=== PATIENT | female | born 1995 | race Hispanic/Latino ===

== ENCOUNTER 2018-09-09 14:41 | Emergency (ER) | payer OTHER, SELFPAY ==
--- OUTSIDE RECORDS SUMMARY | 2018-09-09 14:45 | XMS REPORT | Clinical Summary ---
:1995 Author Organization [facility] Address [address] [place] [address] Care Team Providers Name Role Phone Asked, No Pcp Primary Care Provider Unavailable Allergies No Known Allergies Medications Medication Sig Dispensed Refills Start Date End Date Status ascorbic acid, vitamin Take 500 mg by 0 Active C, (VITAMIN C) 500 MG mouth 3 (three) tablet times a day. acetaminophen-codeine Take 1 tablet by 0 Active (TYLENOL WITH CODEINE mouth every 6 #3) 300-30 mg per (six) hours as tablet needed for moderate pain. ferrous sulfate 325 Take 325 mg by 0 Active (65 FE) MG tablet mouth daily with breakfast. amoxicillin (AMOXIL) Take 500 mg by 0 09/11/2017 Active 500 MG capsule mouth 3 (three) times a day. VIT 10/IRON Take 1 tablet by 0 Active FUM/FOLIC (VITAFOL-OB mouth daily. ORAL) Active Problems Not on file Encounters Date Type Specialty Care Team Description 09/16/2017 Hospital Encounter Obstetrics and Keshawn Oreilly MD 38 weeks gestation of Gynecology (Primary Dx) after 09/08/2017 Social History Tobacco Use Types Packs/Day Years Used Date Never Smoker Smokeless Tobacco: Never Used Alcohol Use Drinks/Week oz/Week Comments No Sex Assigned at Date Recorded Not on file Job Start Date Occupation Industry Not on file Not on file Not on file Travel History Travel Start Travel End No recent travel history available. Last Filed Vital Signs Vital Sign Reading Time Taken Blood Pressure 114/65 09/16/2017 2:50 PM PHOTOGRAPHY ASSISTANT Pulse 71 09/16/2017 2:50 PM PHOTOGRAPHY ASSISTANT Temperature 36.3 C (97.4 F) 09/16/2017 1:31 PM PHOTOGRAPHY ASSISTANT Respiratory Rate 18 09/16/2017 1:31 PM PHOTOGRAPHY ASSISTANT Oxygen Saturation - - Inhaled Oxygen Concentration - - Weight 86.6 kg (191 lb) 09/16/2017 1:31 PM PHOTOGRAPHY ASSISTANT Height 152.4 cm (5') 09/16/2017 1:31 PM PHOTOGRAPHY ASSISTANT Body Mass Index 37.3 09/16/2017 1:31 PM PHOTOGRAPHY ASSISTANT Plan of Treatment Not on file Procedures Procedure Name Priority Date/Time Associated Comments Diagnosis ZZESTIMATED GFR Routine 09/16/2017 2:40 Results for this PM PHOTOGRAPHY ASSISTANT procedure are in the results section. URIC ACID LEVEL Routine 09/16/2017 2:40 Results for this PM PHOTOGRAPHY ASSISTANT procedure are in the results section. FIBRINOGEN Routine 09/16/2017 2:40 Results for this PM PHOTOGRAPHY ASSISTANT procedure are in the results section. PARTIAL THROMBOPLASTIN Routine 09/16/2017 2:40 Results for this TIME (PTT) PM PHOTOGRAPHY ASSISTANT procedure are in the results section. PROTHROMBIN TIME WITH Routine 09/16/2017 2:40 Results for this INR PM PHOTOGRAPHY ASSISTANT procedure are in the results section. COMPREHENSIVE METABOLIC Routine 09/16/2017 2:40 Results for this PANEL PM PHOTOGRAPHY ASSISTANT procedure are in the results section. HC COMPLETE BLD COUNT Routine 09/16/2017 2:40 Results for this W/AUTO DIFF PM PHOTOGRAPHY ASSISTANT procedure are in the results section. URINE DRUGS OF ABUSE STAT 09/16/2017 1:30 Results for this SCREEN PM PHOTOGRAPHY ASSISTANT procedure are in the results section. URINALYSIS SCREEN AND STAT 09/16/2017 1:30 Results for this MICROSCOPY, WITH REFLEX PM PHOTOGRAPHY ASSISTANT procedure are in TO CULTURE the results section. GRAM STAIN STAT 09/16/2017 1:30 Results for this PM PHOTOGRAPHY ASSISTANT procedure are in the results section. URINE CULTURE STAT 09/16/2017 1:30 Results for this PM PHOTOGRAPHY ASSISTANT procedure are in the results section. after 09/08/2017 Results Estimated GFR (09/16/2017 2:40 PM PHOTOGRAPHY ASSISTANT) GFR Non Af Amer >90 mL/min/1.73 m2 [facility] DEPARTMENT OF PATHOLOGY AND GENOMIC MEDICINE GFR Af Amer >90 mL/min/1.73 m2 [facility] DEPARTMENT OF Comment: PATHOLOGY AND GENOMIC Chronic kidney disease: <60 mL/min/1.73m2 MEDICINE Kidney failure: <15 mL/min/1.73m2 The estimated GFR is calculated from the IDMS-traceable Modification of Diet in Renal Disease Equation. The accuracy of the calculation is poor when the creatinine is normal. Calculated values >90 mL/min/1.73m2 are not reported. This equation has not been validated in children (<18 years), women, the elderly (>70 years), or ethnic groups other than Caucasians and Americans. Specimen Plasma specimen Performing Organization Address [facility] Phone Number [facility] OF PATHOLOGY AND [id number] Adrianoseikylee. [address] Partial thromboplastin time, activated (09/16/2017 2:40 PM PHOTOGRAPHY ASSISTANT) PTT 28.6 23.0 - 36.0 sec [facility] DEPARTMENT OF PATHOLOGY Comment: AND GENOMIC MEDICINE PTT therapeutic range for unfractionated heparin is 61.0-112.0 seconds which corresponds to Anti-Xa 0.3-0.7 U/ml. Specimen Blood Performing Organization Address [facility] Phone Number [facility] OF PATHOLOGY AND [id number] [address] Prothrombin time with INR (09/16/2017 2:40 PM PHOTOGRAPHY ASSISTANT) Prothrombin time 13.6 12.0 - 15.0 sec [facility] DEPARTMENT OF PATHOLOGY AND GENOMIC MEDICINE INR 1.0 [facility] DEPARTMENT OF Comment: PATHOLOGY AND GENOMIC The International Normalized Ratio (INR) is a therapeutic MEDICINE monitoring tool for patients who are stable on oral anticoagulant therapy. An INR of 2.0-3.0 is suggested for deep vein thrombosis/pulmonary embolism. Specimen Blood Performing Organization Address [facility] Phone Number [facility] DEPARTMENT OF PATHOLOGY AND [id number] Adrianoseikylee. [address] Fibrinogen (09/16/2017 2:40 PM PHOTOGRAPHY ASSISTANT) Fibrinogen 510 (H) 200 - 450 mg/dL [facility] DEPARTMENT OF PATHOLOGY AND GENOMIC [facility] Specimen Blood Performing Organization Address [facility] Phone Number [facility] DEPARTMENT OF PATHOLOGY AND [id number] Adrianoseikylee. [address] CBC with platelet and differential (09/16/2017 2:40 PM PHOTOGRAPHY ASSISTANT) WBC 6.39 4.50 - 11.00 k/uL [facility] DEPARTMENT OF PATHOLOGY AND GENOMIC MEDICINE RBC 3.78 (L) 4.20 - 5.50 m/uL [facility] DEPARTMENT OF PATHOLOGY AND GENOMIC MEDICINE HGB 9.2 (L) 12.0 - 16.0 g/dL [facility] DEPARTMENT OF PATHOLOGY AND GENOMIC MEDICINE HCT 28.2 (L) 37.0 - 47.0 % [facility] DEPARTMENT OF PATHOLOGY AND GENOMIC MEDICINE MCV 74.6 (L) 82.0 - 100.0 fL [facility] DEPARTMENT OF PATHOLOGY AND GENOMIC MEDICINE MCH 24.3 (L) 27.0 - 34.0 pg [facility] DEPARTMENT OF PATHOLOGY AND GENOMIC MEDICINE MCHC 32.6 31.0 - 37.0 g/dL [facility] OF PATHOLOGY AND GENOMIC MEDICINE RDW - SD 46.1 37.0 - 55.0 fL [facility] OF PATHOLOGY AND GENOMIC MEDICINE MPV 11.2 8.8 - 13.2 fL [facility] DEPARTMENT OF PATHOLOGY AND GENOMIC MEDICINE Platelet count 179 150 - 400 k/uL [facility] DEPARTMENT OF PATHOLOGY AND GENOMIC MEDICINE Neutrophils 61.0 39.0 - 69.0 % [facility] DEPARTMENT OF PATHOLOGY AND GENOMIC MEDICINE Lymphocytes 33.2 25.0 - 45.0 % [facility] DEPARTMENT OF PATHOLOGY AND GENOMIC MEDICINE Monocytes 5.0 0.0 - 10.0 % [facility] DEPARTMENT OF PATHOLOGY AND GENOMIC MEDICINE Eosinophils 0.3 0.0 - 5.0 % [facility] DEPARTMENT OF PATHOLOGY AND GENOMIC MEDICINE Basophils 0.2 0.0 - 1.0 % [facility] DEPARTMENT OF PATHOLOGY AND GENOMIC MEDICINE Immature granulocytes 0.3 0.0 - 1.0 % [facility] DEPARTMENT OF PATHOLOGY AND GENOMIC MEDICINE Specimen Blood Performing Organization Address City/[facility] Phone Number [facility] DEPARTMENT OF PATHOLOGY AND [id number] [address] Uric acid level (09/16/2017 2:40 PM PHOTOGRAPHY ASSISTANT) Uric acid 4.8 3.5 - 8.5 mg/dL [facility] OF PATHOLOGY AND GENOMIC MEDICINE Specimen Plasma specimen Performing Organization Address City/[facility] Phone Number [facility] OF PATHOLOGY AND [id number] [employer]. [address] Comprehensive metabolic panel (09/16/2017 2:40 PM PHOTOGRAPHY ASSISTANT) Sodium 137 135 - 148 mEq/L [facility] DEPARTMENT OF PATHOLOGY AND GENOMIC MEDICINE Potassium 3.5 3.5 - 5.0 mEq/L [facility] DEPARTMENT OF PATHOLOGY AND GENOMIC MEDICINE Chloride 101 99 - 109 mEq/L [facility] OF PATHOLOGY AND GENOMIC MEDICINE CO2 22 (L) 24 - 31 mEq/L [facility] DEPARTMENT OF PATHOLOGY AND GENOMIC MEDICINE Anion gap 14 7 - 15 mEq/L [facility] DEPARTMENT OF Comment: PATHOLOGY AND GENOMIC Starting from October , anion gap calculation MEDICINE no longer incorporates potassium. Please note the change. BUN <5 (L) 8 - 24 mg/dL [facility] DEPARTMENT OF PATHOLOGY AND GENOMIC MEDICINE Creatinine 0.5 0.5 - 1.5 mg/dL [facility] OF PATHOLOGY AND GENOMIC MEDICINE Glucose 101 (H) 65 - 99 mg/dL [facility] DEPARTMENT OF PATHOLOGY AND GENOMIC MEDICINE Calcium 8.8 8.6 - 10.6 mg/dL [facility] DEPARTMENT OF PATHOLOGY AND GENOMIC MEDICINE Protein 6.7 6.3 - 8.2 g/dL [facility] OF PATHOLOGY AND GENOMIC MEDICINE Albumin 2.8 (L) 3.5 - 5.0 g/dL [facility] OF PATHOLOGY AND GENOMIC MEDICINE A/G ratio 0.7 0.7 - 3.8 [facility] OF PATHOLOGY AND GENOMIC MEDICINE Alkaline phosphatase 93 30 - 115 U/L [facility] OF PATHOLOGY AND GENOMIC MEDICINE AST 16 15 - 46 U/L [facility] PATHOLOGY AND GENOMIC MEDICINE ALT 9 (L) 10 - 55 U/L [facility] OF PATHOLOGY AND GENOMIC MEDICINE Total bilirubin <0.3 0.2 - 1.2 mg/dL [facility] OF PATHOLOGY AND GENOMIC MEDICINE Specimen Plasma specimen Performing Organization Address City/State/Zipcode Phone Number [facility] OF PATHOLOGY AND [address] [place] [address] [facility] Urinalysis screen and microscopy, with reflex to culture (09/16/2017 1:30 PM PHOTOGRAPHY ASSISTANT) Specimen site Clean catch [facility] DEPARTMENT OF PATHOLOGY AND GENOMIC MEDICINE Color, UA Straw [facility] DEPARTMENT OF PATHOLOGY AND GENOMIC MEDICINE Appearance, UA Hazy [facility] DEPARTMENT OF PATHOLOGY AND GENOMIC MEDICINE Specific gravity, UA 1.005 1.001 - 1.035 [facility] DEPARTMENT OF PATHOLOGY AND GENOMIC MEDICINE pH, UA 7.0 5.0 - 8.5 [facility] DEPARTMENT OF PATHOLOGY AND GENOMIC MEDICINE Protein, UA Negative Negative [facility] DEPARTMENT OF PATHOLOGY AND GENOMIC MEDICINE Glucose, UA Negative Negative [facility] DEPARTMENT OF PATHOLOGY AND GENOMIC MEDICINE Ketones, UA Negative Negative [facility] DEPARTMENT OF PATHOLOGY AND GENOMIC MEDICINE Bilirubin, UA Negative Negative [facility] DEPARTMENT OF PATHOLOGY AND GENOMIC MEDICINE Blood, UA Negative Negative [facility] DEPARTMENT OF PATHOLOGY AND GENOMIC MEDICINE Nitrite, UA Negative Negative [facility] DEPARTMENT OF PATHOLOGY AND GENOMIC MEDICINE Urobilinogen, UA <2.0 <2.0 [facility] DEPARTMENT OF PATHOLOGY AND GENOMIC MEDICINE Leukocyte esterase, UA Small (A) Negative [facility] DEPARTMENT OF PATHOLOGY AND GENOMIC MEDICINE Epithelial cells, UA 8 /HPF [facility] DEPARTMENT OF PATHOLOGY AND GENOMIC MEDICINE WBC, UA 3 0 - 4 /HPF [facility] DEPARTMENT OF PATHOLOGY AND GENOMIC MEDICINE RBC, UA 1 0 - 2 /HPF [facility] DEPARTMENT OF PATHOLOGY AND GENOMIC MEDICINE Bacteria, UA Moderate (A) None seen [facility] DEPARTMENT OF PATHOLOGY AND GENOMIC MEDICINE Yeast, UA None seen [facility] DEPARTMENT OF PATHOLOGY AND GENOMIC MEDICINE Yeast with pseudohyphae, UA None seen [facility] DEPARTMENT OF PATHOLOGY AND GENOMIC MEDICINE Specimen Urine Performing Organization Address City/[facility]/Zipcode Phone Number [facility] DEPARTMENT OF PATHOLOGY AND [address] [place] [address] [facility] Urine drugs of abuse screen (09/16/2017 1:30 PM PHOTOGRAPHY ASSISTANT) Amphetamine screen, urine Negative [facility] DEPARTMENT OF PATHOLOGY AND GENOMIC MEDICINE Methamphetamine screen, SEE COMMENT [facility] DEPARTMENT OF urine Comment: PATHOLOGY AND GENOMIC Test Not Performed. MEDICINE Methamphetamine and Methadone are not available from hydraulic jack mechanic. If needed contact the lab for referral testing. Barbiturate screen, urine Negative [facility] DEPARTMENT OF PATHOLOGY AND GENOMIC MEDICINE Benzodiazepine screen, Negative [facility] DEPARTMENT OF urine PATHOLOGY AND GENOMIC MEDICINE Cocaine screen, urine Negative [facility] DEPARTMENT OF PATHOLOGY AND GENOMIC MEDICINE Methadone screen, urine SEE COMMENT [facility] DEPARTMENT OF Comment: PATHOLOGY AND GENOMIC Test Not Performed. MEDICINE Methamphetamine and Methadone are not available from hydraulic jack mechanic. If needed contact the lab for referral testing. Opiates screen, urine Positive (A) [facility] DEPARTMENT OF PATHOLOGY AND GENOMIC MEDICINE Phencyclidine screen, urine Negative [facility] DEPARTMENT OF PATHOLOGY AND GENOMIC MEDICINE Cannabinoid screen, urine Negative [facility] DEPARTMENT OF PATHOLOGY AND GENOMIC MEDICINE Tricyclic screen, urine Negative [facility] DEPARTMENT OF Comment: PATHOLOGY AND GENOMIC Drug screen minimum concentration of detectability MEDICINE Ekuvucdzphzm4570 ng/mL Nfljcpicxkxzfdrx1492 ng/mL Barbiturates 300 ng/mL Jfjtrtclkognpil534 ng/mL Gjkwycp177 ng/mL Kzcelnmrj921 ng/mL Uhbwymz487 ng/mL Phencyclidine 25 ng/mL Ysjjwmkchppt02 ng/mL Xkffoqqeft2922 ng/mL Negative test results indicates presumptive evidence of lack of clinically significant drug concentration in this urine specimen. Positive test results are presumptive evidence of clinically significant drug concentration in this urine specimen. Testing performed for medical purposes only. Specimen Urine Performing Organization Address [facility]/Zipcode Phone Number [facility] DEPARTMENT OF PATHOLOGY AND [address] [place] [address] GENOMIC MEDICINE Gram stain (09/16/2017 1:30 PM PHOTOGRAPHY ASSISTANT) Gram stain result No WBC's [facility] DEPARTMENT OF PATHOLOGY Moderate Gram positive rods AND GENOMIC MEDICINE Comment: Specimen Information Specimen Source: Urine Specimen Site: Clean catch Specimen Urine Performing Organization Address City/[facility]/Zipcode Phone Number [facility] DEPARTMENT OF PATHOLOGY AND [address] [place] [address] [employer] MEDICINE Urine culture (09/16/2017 1:30 PM PHOTOGRAPHY ASSISTANT) Urine culture isolate Mixed Gram positive charlette [facility] DEPARTMENT OF 10-3 cfu/ml PATHOLOGY AND GENOMIC (A) MEDICINE Comment: Specimen Information Specimen Source: Urine Specimen Site: Clean catch Specimen Urine Performing Organization Address City/State/Zipcode Phone Number [facility] DEPARTMENT OF PATHOLOGY AND [address] [place] [address] GENOMIC MEDICINE after 09/08/2017 Insurance Payer Benefit Plan / Group Subscriber ID Type Phone Address [facility] x[facility] HMO Advance Directives Patient has advance care planning documents, and code status on file. For more information, please contact:Greg Nichols[address] [place] [address] Code Status Date Activated Date Inactivated Comments Full Code 09/16/2017 1:34 PM 09/16/2017 7:42 PM Code Status decision reached by: Patient
--- OUTSIDE RECORDS SUMMARY | 2018-09-09 14:46 | XMS REPORT ---
:1995 [facility] Address [address] [place] [address] [address] [place] [address] Care Team Providers Name Role Phone Unavailable Unavailable Unavailable Problems This patient has no known problems. Allergies, Adverse Reactions, Alerts This patient has no known allergies or adverse reactions. Medications This patient has no known medications.
[2018-09-09] MEDS ORDERED: ALBUTEROL 2.5 MG/3 ML NEB SOL ONE (15:53)
--- NOTE | 2018-09-09 16:58 | ER ---
Nurse's Notes [facility] Name: Sandy Murray Age: 23 yrs Sex: Female : 1995 Arrival Date: 09/09/2018 Time: 14:47 Bed DIS3 Private MD: None, None Diagnosis: Bronchitis, not specified as acute or chronic Presentation: 09/09 14:55 Presenting complaint: Patient states: cough that began 2-3 days ago. Pt also reports aa5 sore throat. Transition of care: patient was not received from another setting of care. Onset of symptoms was August 2018. Risk Assessment: Do you want to hurt yourself or someone else? Patient reports no desire to harm self or others. Initial Sepsis Screen: Does the patient meet any 2 criteria? No. Patient's initial sepsis screen is negative. Does the patient have a suspected source of infection? No. Patient's initial sepsis screen is negative. Care prior to arrival: None. 14:55 Method Of Arrival: Ambulatory aa5 14:55 Acuity: JANES 4 aa5 PEDIATRIC UROLOGIST: 14:56 LMP N/A - control method aa5 Historical: - Allergies: 14:56 No Known Allergies; aa5 - Home Meds: 14:56 Iron CR Oral [Active]; aa5 - PMHx: 14:56 Anemia; aa5 - PSHx: 14:56 ; Appendectomy; aa5 - Immunization history:: Flu vaccine is up to date. - Social history:: Smoking status: Patient uses tobacco products, denies chronic smoking, but will smoke occasionally. - Ebola Screening: : No symptoms or risks identified at this time. Screenin:28 Abuse screen: Denies threats or abuse. Denies injuries from another. Nutritional rv screening: No deficits noted. Tuberculosis screening: No symptoms or risk factors identified. Fall Risk None identified. Assessment: 15:30 General: Appears in no apparent distress. comfortable, Behavior is calm, cooperative. rv 15:30 Pain: Denies pain. Neuro: Level of Consciousness is awake, alert, obeys commands, rv Oriented to person, place, time, situation. Cardiovascular: Capillary refill < 3 seconds. Respiratory: Airway is patent Breath sounds with wheezes bilaterally. GI: No signs and/or symptoms were reported involving the gastrointestinal system. : No signs and/or symptoms were reported regarding the genitourinary system. EENT: No signs and/or symptoms were reported regarding the EENT system. Derm: Skin is intact. Musculoskeletal: No signs and/or symptoms reported regarding the musculoskeletal system. Vital Signs: 14:56 BP 124 / 93; Pulse 102; Resp 16 S; Temp 98.4(TE); Pulse Ox 98% on R/A; Weight 90.72 kg aa5 (R); Height 5 ft. 1 in. (154.94 cm) (R); Pain 8/10; 14:56 Body Mass Index 37.79 (90.72 kg, 154.94 cm) aa5 ED Course: 14:47 Patient arrived in ED. mr 14:47 None, None is Private Physician. mr 14:47 None, None is Private Physician. mr 14:55 Triage completed. aa5 14:55 Arm band placed on. aa5 15:14 Flavia Yuan FNP-C is [facility]. snw 15:14 Usama Valladares MD is Attending Physician. snw 16:27 Flu Sent. rv 16:29 Patient has correct armband on for positive identification. Bed in low position. Call rv light in reach. Side rails up X 1. Adult w/ patient. Pulse ox on. NIBP on. 17:21 No provider procedures requiring assistance completed. Patient did not have IV access rv during this emergency room visit. Administered Medications: 15:40 Drug: Albuterol 2.5 mg Route: Inhalation; rv 17:19 Follow up: Response: Marked relief of symptoms rv 17:15 Drug: Decadron 8 mg Route: PO; rv 17:19 Follow up: Response: Medication administered at discharge. rv Outcome: 16:58 Discharge ordered by . snw 17:22 Discharged to home ambulatory. rv 17:22 Condition: good 17:22 Discharge instructions given to patient, Instructed on discharge instructions, follow up and referral plans. medication usage, Demonstrated understanding of instructions, follow-up care, medications, Prescriptions given X 1. 17:22 Patient left the ED. rv Signatures: Flavia Yuan FNP-C [employer] Darlyn DangeloMacrina RN RN aa5 Fernando Galdamez RN RN rv Corrections: (The following items were deleted from the chart) 15:09 14:56 90.72 kg Reported; Height 5 ft. 1 in. Reported; BMI: 37.7; Pain 8/10; aa5 aa5
--- NOTE | 2018-09-09 16:59 | EDPHYS ---
Physician Documentation [facility] Name: Sandy Murray Age: 23 yrs Sex: Female : 1995 Arrival Date: 09/09/2018 Time: 14:47 Bed DIS3 Private MD: None, None ED Physician Usama Valladares HPI: 09/09 15:40 This 23 yrs old Female presents to ER via Ambulatory with complaints of Cough. snw 15:40 The patient or guardian reports airway noise, cough, described as moderate, hoarse snw voice. Onset: The symptoms/episode began/occurred suddenly, 3 day(s) ago. Severity of symptoms: At their worst the symptoms were moderate. Associated signs and symptoms: Pertinent positives: rhinorrhea, sore throat. The patient has not experienced similar symptoms in the past. The patient has not recently seen a physician. pt's three children with similar s/s. 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 - Social history:: Smoking status: Patient uses tobacco products, denies chronic smoking, but will smoke occasionally. - Ebola Screening: : No symptoms or risks identified at this time. ROS: 15:40 Eyes: Negative for injury, pain, redness, and discharge, ENT: Negative for injury, snw pain, and discharge, Neck: Negative for injury, pain, and swelling, Cardiovascular: Negative for chest pain, palpitations, and edema. 15:40 Abdomen/GI: Negative for abdominal pain, nausea, vomiting, diarrhea, and constipation, Back: Negative for injury and pain, : Negative for injury, bleeding, discharge, and swelling, MS/Extremity: Negative for injury and deformity, Skin: Negative for injury, rash, and discoloration, Neuro: Negative for headache, weakness, numbness, tingling, and seizure. 15:40 Constitutional: Positive for body aches, fever, malaise, poor PO intake. 15:40 Respiratory: Positive for cough, wheezing. Exam: 15:35 Constitutional: This is a well developed, well nourished patient who is awake, alert, snw and in no acute distress. Head/Face: Normocephalic, atraumatic. Eyes: Pupils equal round and reactive to light, extra-ocular motions intact. Lids and lashes normal. Conjunctiva and sclera are non-icteric and not injected. Cornea within normal limits. Periorbital areas with no swelling, redness, or edema. ENT: Nares patent. No nasal discharge, no septal abnormalities noted. Tympanic membranes are normal and external auditory canals are clear. Oropharynx with no redness, swelling, or masses, exudates, or evidence of obstruction, uvula midline. Mucous membranes moist. Neck: Trachea midline, no thyromegaly or masses palpated, and no cervical lymphadenopathy. Supple, full range of motion without nuchal rigidity, or vertebral point tenderness. No Meningismus. Chest/axilla: Normal chest wall appearance and motion. Nontender with no deformity. No lesions are appreciated. 15:35 Abdomen/GI: Soft, non-tender, with normal bowel sounds. No distension or tympany. No guarding or rebound. No evidence of tenderness throughout. Back: No spinal tenderness. No costovertebral tenderness. Full range of motion. MS/ Extremity: Pulses equal, no cyanosis. Neurovascular intact. Full, normal range of motion. Neuro: Awake and alert, GCS 15, oriented to person, place, time, and situation. Cranial nerves II-XII grossly intact. Motor strength 5/5 in all extremities. Sensory grossly intact. Cerebellar exam normal. Normal gait. 15:35 Cardiovascular: Rate: tachycardic. 15:35 Respiratory: the patient does not display signs of respiratory distress, Respirations: normal, Breath sounds: wheezing: is scattered. 15:35 Skin: Appearance: Color: pale, Moisture: normal moisture. Vital Signs: 14:56 BP 124 / 93; Pulse 102; Resp 16 S; Temp 98.4(TE); Pulse Ox 98% on R/A; Weight 90.72 kg aa5 (R); Height 5 ft. 1 in. (154.94 cm) (R); Pain 8/10; 14:56 Body Mass Index 37.79 (90.72 kg, 154.94 cm) aa5 MDM: 15:15 Patient medically screened. [facility] 17:00 Data reviewed: vital signs, nurses notes. Data interpreted: Pulse oximetry: on room air snw is 98 %. Interpretation: normal. Counseling: I had a detailed discussion with the patient and/or guardian regarding: the historical points, exam findings, and any diagnostic results supporting the discharge/admit diagnosis, lab results, the need for outpatient follow up, to return to the emergency department if symptoms worsen or persist or if there are any questions or concerns that arise at home. Special discussion: I have referred the patient to see his PCP for further evaluation of high blood pressure. Based on the history and exam findings, there is no indication for further emergent testing or inpatient evaluation. I discussed with the patient/guardian the need to see the primary care provider for further evaluation of the symptoms. 09/09 15:34 Order name: Flu; Complete Time: 16:35 snw Administered Medications: 15:40 Drug: Albuterol 2.5 mg Route: Inhalation; rv 17:19 Follow up: Response: Marked relief of symptoms rv 17:15 Drug: Decadron 8 mg Route: PO; rv 17:19 Follow up: Response: Medication administered at discharge. rv Disposition: 09/10 07:10 Co-signature as Attending Physician, Usama Valladares MD I agree with the assessment and [facility] plan of care. Disposition: 09/09/18 16:58 Discharged to Home. Impression: Bronchitis, not specified as acute or chronic. - Condition is Stable. - Discharge Instructions: Acute Bronchitis, Adult, Fever, Adult, Hypertension, Cool Mist Vaporizer, Cough, Adult. - Prescriptions for Albuterol Sulfate 90 mcg/actuation - inhale 1-2 puff by INHALATION route every 4-6 hours; 1 Inhaler. - Work release form, Medication Reconciliation Form, Thank You Letter, Antibiotic Education, Prescription Opioid Use form. - Follow up: Private Physician; When: 2 - 3 days; Reason: Recheck today's complaints, Continuance of care, Re-evaluation by your physician. Follow up: Emergency Department; When: As needed; Reason: Worsening of condition. Signatures: Dispatcher [employer] Usama Dela Cruz MD MD cha Therrien, Shelly, BULLET LUBRICANT MIXER-C BULLET LUBRICANT MIXER-Csnw Macrina Block, RN RN aa5 Fernando Galdamez RN RN rv Corrections: (The following items were deleted from the chart) 09/09 17:22 16:58 09/09/2018 16:58 Discharged to Home. Impression: Bronchitis, not specified as rv acute or chronic. Condition is Stable. Forms are Medication Reconciliation Form, Thank You Letter, Antibiotic Education, Prescription Opioid Use. Follow up: Private Physician; When: 2 - 3 days; Reason: Recheck today's complaints, Continuance of care, Re-evaluation by your physician. Follow up: Emergency Department; When: As needed; Reason: Worsening of condition. snw
[2018-09-09] MEDS ORDERED: DEXAMETHASONE 4 MG TAB ONE (17:25)
== END 2018-09-09 17:22 | disposition home or self-care (01) ==
LOC: ER 14:41
DX: J40 Bronchitis, not specified as acute or chronic (principal); D64.9 Anemia, unspecified
CPT/HCPCS: 87804; 99284

== ENCOUNTER 2018-12-21 21:31 | Emergency (ER) | payer SELFPAY ==
--- OUTSIDE RECORDS SUMMARY | 2018-12-21 21:33 | XMS REPORT | Clinical Summary ---
:1995 Author Organization [facility] Address [address] [place] [address] Care Team Providers Name Role Phone Asked, [...] daily. ORAL) Active Problems Not on file Social History Tobacco Use Types Packs/Day Years Used Date Never Smoker Smokeless Tobacco: Never Used Alcohol Use Drinks/Week oz/Week Comments No Sex Assigned at Date Recorded Not on file Job Start Date Occupation Industry Not on file Not on file Not on file Travel History Travel Start Travel End No recent travel history available. Last Filed Vital Signs Not on file Plan of Treatment Not on file Results Not on fileafter 12/20/2017 Insurance Payer Benefit Plan / Subscriber ID Effective Dates Phone Address Type Group [employer] [facility] xxxxxxxxx 2017-Present HMO CHOICE [facility] Advance Directives Patient has advance care planning documents, and code status on file. For more information, please contact:[place] [phone] [place] [address] Code Status Date Activated Date Inactivated Comments Full Code 09/16/2017 1:34 PM 09/16/2017 7:42 PM Code Status decision reached by: Patient
--- OUTSIDE RECORDS SUMMARY | 2018-12-21 21:33 | XMS REPORT ---
:1995 [facility] Address [address] [place] [address] [address] [place] [address] Care Team Providers Name Role Phone Unavailable Unavailable Unavailable Problems This patient has no known problems. Allergies, Adverse Reactions, Alerts This patient has no known allergies or adverse reactions. Medications This patient has no known medications.
[2018-12-21] MEDS ORDERED: LIDOCAINE 1% MPF 5 ML VIAL ONE (22:14)
[2018-12-21] MEDS ORDERED: HYDROCODONE/APAP 5/325 MG TAB ONE (22:15)
[2018-12-21] MEDS ORDERED: BUPIVACAINE 0.5% PF 10 ML VIAL ONE (22:15)
--- NOTE | 2018-12-21 23:02 | ER ---
Nurse's Notes [facility] Name: Sandy Murray Age: 23 yrs Sex: Female : 1995 Arrival Date: 12/21/2018 Time: 21:39 Bed 28 Private MD: Diagnosis: Laceration without foreign body, left knee Presentation: 12/21 21:44 Presenting complaint: EMS states: patient is on the way back to bed, tripped and hit rv her left knee on the metal framing of the bed. laceration on her knee, not bleeding. Transition of care: patient was not received from another setting of care. Onset of symptoms was December 21, 2018 at 21:15. Risk Assessment: Do you want to hurt yourself or someone else? Patient reports no desire to harm self or others. Initial Sepsis Screen: Does the patient meet any 2 criteria? No. Patient's initial sepsis screen is negative. Does the patient have a suspected source of infection? No. Patient's initial sepsis screen is negative. Care prior to arrival: None. 21:44 Method Of Arrival: EMS: [facility] rv 21:44 Acuity: JANES 3 rv Triage Assessment: 21:47 General: Appears in no apparent distress. comfortable, Behavior is calm, cooperative. rv Pain: Complains of pain in left knee. EENT: No signs and/or symptoms were reported regarding the EENT system. Neuro: Level of Consciousness is awake, alert, obeys commands, Oriented to person, place, time, situation. Cardiovascular: Patient's skin is warm and dry. Respiratory: Airway is patent. GI: No signs and/or symptoms were reported involving the gastrointestinal system. : No signs and/or symptoms were reported regarding the genitourinary system. Derm: Wound noted left knee Wound is laceration. Musculoskeletal: No signs and/or symptoms reported regarding the musculoskeletal system. 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 - Social history:: Smoking status: Patient uses tobacco products, denies chronic smoking, but will smoke occasionally. - Ebola Screening: : No symptoms or risks identified at this time. Screenin:52 Abuse screen: Denies threats or abuse. Denies injuries from another. Nutritional rv screening: No deficits noted. Tuberculosis screening: No symptoms or risk factors identified. Fall Risk None identified. Assessment: 23:13 Reassessment: Patient appears in no apparent distress at this time. Patient and/or rv family updated on plan of care and expected duration. Pain level reassessed. Patient is alert, oriented x 3, equal unlabored respirations, skin warm/dry/pink. Patient states feeling better. Vital Signs: 21:51 BP 114 / 66; Pulse 75; Resp 16; Temp 98.4; Pulse Ox 99% ; Weight 77.11 kg; Height 5 ft. rv 1 in. (154.94 cm); 22:30 BP 116 / 86; Pulse 78; Resp 17; Pulse Ox 100% ; rv 23:00 BP 108 / 73; Pulse 78; Resp 17; Temp 98.2; Pulse Ox 99% ; rv 21:51 Body Mass Index 32.12 (77.11 kg, 154.94 cm) rv ED Course: 21:39 Patient arrived in ED. ca1 21:39 Dexter Roach, ARAMIS is PHCP. pm1 21:39 Rui Beckman MD is Attending Physician. pm1 21:44 Fernando Galdamez, KASANDRA is Primary Nurse. rv 21:46 Triage completed. rv 21:53 Patient has correct armband on for positive identification. Bed in low position. Call rv light in reach. Side rails up X 1. Adult w/ patient. Pulse ox on. NIBP on. 21:53 Patient placed in an exam room, on a stretcher, on pulse oximetry, Patient notified of rv wait time. 21:53 Wound care: to laceration located on left knee was cleaned with Hibiclens, ice pack rv applied. Patient tolerated well. 22:14 Knee Left 3 View XRAY In Process Unspecified. EDMS 23:12 Assist provider with laceration repair on left knee that was between 7.6 to 12.5 cm rv using sutures. Set up tray. Performed by Dexter Roach PULL SOCKET ASSEMBLER Dressed with 4X4s, Patient tolerated well. Patient did not have IV access during this emergency room visit. Administered Medications: 22:00 Drug: [place] 5 mg-325 mg 1 tabs Route: PO; rv 23:15 Follow up: Response: Pain is decreased rv 22:15 Not Given (upto date): Tetanus-Diphtheria Toxoid Adult 0.5 ml IM once rv Outcome: 23:01 Discharge ordered by . pm1 23:14 Discharged to home via wheelchair, WITH KNEE IMMOBILIZER rv 23:14 Condition: good 23:14 Discharge instructions given to patient, family, Instructed on discharge instructions, follow up and referral plans. medication usage, KNEE IMMOBILIZER Demonstrated understanding of instructions, follow-up care, medications, KNEE IMMOBILIZER Prescriptions given X 2. 23:15 Patient left the ED. rv Signatures: Dispatcher [employer] EDMS Dexter Roach NP PULL SOCKET ASSEMBLER pm1 Fernando Galdamez, RN RN rv Aida Thakur RN RN ca1
--- NOTE | 2018-12-21 23:02 | EDPHYS ---
Physician Documentation [facility] Name: Sandy Murray Age: 23 yrs Sex: Female : 1995 Arrival Date: 12/21/2018 Time: 21:39 Bed 28 Private MD: ED Physician Rui Beckman HPI: 12/21 22:18 This 23 yrs old Female presents to ER via EMS with complaints of Left knee pm1 laceration. 22:18 The patient has a laceration occurred at home, and there are no complicating factors. pm1 The injury was accidental. The laceration(s) is(are) located on the left knee. Onset: The symptoms/episode began/occurred just prior to arrival. Associated signs and symptoms: Pertinent negatives: deformity, dizziness, heavy bleeding, numbness distal to injury, suspected foreign body. The patient has not experienced similar symptoms in the past. The patient has not recently seen a physician. 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 Resulting in left knee laceration. No headache, head injury, neck pain, or LOC. 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 - Social history:: Smoking status: Patient uses tobacco products, denies chronic smoking, but will smoke occasionally. - Ebola Screening: : No symptoms or risks identified at this time. ROS: 22:18 Constitutional: Negative for fever, chills, and weight loss, Eyes: Negative for injury, pm1 pain, redness, and discharge, ENT: Negative for injury, pain, and discharge, Neck: Negative for injury, pain, and swelling, Cardiovascular: Negative for chest pain, palpitations, and edema, Respiratory: Negative for shortness of breath, cough, wheezing, and pleuritic chest pain, Abdomen/GI: Negative for abdominal pain, nausea, vomiting, diarrhea, and constipation, Back: Negative for injury and pain, : Negative for injury, bleeding, discharge, and swelling. 22:18 Neuro: Negative for headache, weakness, numbness, tingling, and seizure. 22:18 MS/extremity: Positive for laceration, of the left knee, Negative for decreased range of motion, deformity. 22:18 Skin: Positive for laceration(s), of the left knee. Exam: 22:18 Constitutional: This is a well developed, well nourished patient who is awake, alert, pm1 and in no acute distress. Head/Face: Normocephalic, atraumatic. Eyes: Pupils equal round and reactive to light, extra-ocular motions intact. Lids and lashes normal. Conjunctiva and sclera are non-icteric and not injected. Cornea within normal limits. Periorbital areas with no swelling, redness, or edema. ENT: Nares patent. No nasal discharge, no septal abnormalities noted. Tympanic membranes are normal and external auditory canals are clear. Oropharynx with no redness, swelling, or masses, exudates, or evidence of obstruction, uvula midline. Mucous membranes moist. Neck: Trachea midline, no thyromegaly or masses palpated, and no cervical lymphadenopathy. Supple, full range of motion without nuchal rigidity, or vertebral point tenderness. No Meningismus. Chest/axilla: Normal chest wall appearance and motion. Nontender with no deformity. No lesions are appreciated. Cardiovascular: Regular rate and rhythm with a normal S1 and S2. No gallops, murmurs, or rubs. Normal PMI, no JVD. No pulse deficits. Respiratory: Lungs have equal breath sounds bilaterally, clear to auscultation and percussion. No rales, rhonchi or wheezes noted. No increased work of breathing, no retractions or nasal flaring. Abdomen/GI: Soft, non-tender, with normal bowel sounds. No distension or tympany. No guarding or rebound. No evidence of tenderness throughout. Back: No spinal tenderness. No costovertebral tenderness. Full range of motion. 22:18 MS/ Extremity: Pulses equal, no cyanosis. Neurovascular intact. Full, normal range of motion. 22:18 Skin: Appearance: normal except for affected area, injury, laceration(s), the wound is approximately 7 cm(s), with a depth of 1 cm(s), of the left knee. 22:18 Neuro: Orientation: is normal, Motor: is normal, moves all fours, Sensation: is normal, no obvious gross deficits. Vital Signs: 21:51 BP 114 / 66; Pulse 75; Resp 16; Temp 98.4; Pulse Ox 99% ; Weight 77.11 kg; Height 5 ft. rv 1 in. (154.94 cm); 22:30 BP 116 / 86; Pulse 78; Resp 17; Pulse Ox 100% ; rv 23:00 BP 108 / 73; Pulse 78; Resp 17; Temp 98.2; Pulse Ox 99% ; rv 21:51 Body Mass Index 32.12 (77.11 kg, 154.94 cm) rv Laceration: 22:58 Wound Repair of 7cm ( 2.8in ) subcutaneous laceration to left knee. Linear shaped.. pm1 Distal neuro/vascular/tendon intact. Anesthesia: Local anesthetic administered with 10 mls of Lido/Marcaine. Wound prep: Extensive cleansing with hibiclenz by me, Wound irrigation with saline by me, Wound explored extensively, Copious irrigation. Skin closed with 10 4-0 Prolene using simple sutures and sterile technique. Subcutaneous tissue closed with 5 4-0 Vicryl using simple sutures and sterile technique. Dressed with 4x4's. Patient tolerated well. MDM: 21:41 Patient medically screened. pm1 22:17 ED course: Left knee x-ray negative for dislocation, fracture, effusion. pm1 23:00 Data reviewed: vital signs. Data interpreted: Pulse oximetry: on room air is 99 %. pm1 Interpretation: normal. Counseling: I had a detailed discussion with the patient and/or guardian regarding: the historical points, exam findings, and any diagnostic results supporting the discharge/admit diagnosis, radiology results, the need for outpatient follow up, suture removal in 10-14 days, to return to the emergency department if symptoms worsen or persist or if there are any questions or concerns that arise at home. 23:00 ED course: patient discharged home with crutches and knee immobilizer to prevent pm1 dehiscence of wound since it is 7 cm and across the middle of her left knee. 12/21 21:42 Order name: Knee Left 3 View XRAY pm1 12/21 21:42 Order name: Prolene, Sutures; Complete Time: 22:15 pm1 12/21 21:42 Order name: Dressing - Wound; Complete Time: 22:15 pm1 12/21 21:42 Order name: Gloves, Sterile; Complete Time: 22:16 pm1 12/21 21:42 Order name: Setup Suture Tray; Complete Time: 22:16 pm1 12/21 23:00 Order name: Knee Immobilizer; Complete Time: 23:15 pm1 Administered Medications: 22:00 Drug: Moodus 5 mg-325 mg 1 tabs Route: PO; rv 23:15 Follow up: Response: Pain is decreased rv 22:15 Not Given (upto date): Tetanus-Diphtheria Toxoid Adult 0.5 ml IM once rv Disposition: 12/21/18 23:01 Discharged to Home. Impression: Laceration without foreign body, left knee. - Condition is Stable. - Discharge Instructions: Knee Immobilizer, Laceration Care, Adult. - Prescriptions for Keflex 500 mg Oral Capsule - take 1 capsule by ORAL route every 6 hours for 10 days; 40 capsule. Tylenol- Codeine #3 300-30 mg Oral Tablet - take 2 tablets by ORAL route every 6 hours As needed; 20 tablet. - Medication Reconciliation Form, Thank You Letter, Antibiotic Education, Prescription Opioid Use form. - Follow up: Emergency Department; When: As needed; Reason: Worsening of condition. Follow up: Private Physician; When: 10 - 14 days; Reason: Recheck today's complaints, Continuance of care, Staple/Suture removal, Re-evaluation by your physician. - Problem is new. - Symptoms have improved. Addendum: 12/23/2018 15:31 Co-signature as Attending Physician, Rui Beckman MD. g s Signatures: Dispatcher [employer] EDMS Dexter Roach, SENIOR INFORMATION DEVELOPER SENIOR INFORMATION DEVELOPER pm1 Rui Beckman MD MD gs Vicente, Ronaldo, RN RN rv Corrections: (The following items were deleted from the chart) 12/21 23:15 23:01 12/21/2018 23:01 Discharged to Home. Impression: Laceration without foreign body, rv left knee. Condition is Stable. Forms are Medication Reconciliation Form, Thank You Letter, Antibiotic Education, Prescription Opioid Use. Follow up: Emergency Department; When: As needed; Reason: Worsening of condition. Follow up: Private Physician; When: 10 - 14 days; Reason: Recheck today's complaints, Continuance of care, Staple/Suture removal, Re-evaluation by your physician. Problem is new. Symptoms have improved. pm1
--- NOTE | 2018-12-22 12:11 | RAD REPORT ---
EXAM DESCRIPTION: RAD - Knee Left 3 View - 12/21/2018 10:16 pm CLINICAL HISTORY: Left knee pain status post injury FINDINGS: No fracture or dislocation is seen.
== END 2018-12-21 23:15 | disposition home or self-care (01) ==
LOC: ER 21:31
PROC: 0JQP0ZZ Repair Left Lower Leg Subcutaneous Tissue and Fascia, Open Approach (ICD-10-PCS; principal; 2018-12-21)
DX: S81.012A Laceration without foreign body, left knee, initial encounter (principal); W22.03XA Walked into furniture, initial encounter; Y93.01 Activity, walking, marching and hiking; Y92.009 Unspecified place in unspecified non-institutional (private) residence as the place of occurrence of the external cause; D64.9 Anemia, unspecified; Z72.0 Tobacco use
CPT/HCPCS: 99284